=== PATIENT | female | born 1960 | race Caucasian/White ===

== ENCOUNTER 2021-02-12 01:00 | Day surgery (SDC) | payer OTHER, SELFPAY ==
[2021-02-06 13:23] VITALS: BMI 24.8
[2021-02-12] VITALS (16 sets, daily range): BP systolic 124–154; BP diastolic 66–83; PULSE 83–103; RESP 12–18; TEMP 36.3–36.6; O2SAT 93–99; BMI 24.7
[2021-02-12 13:02] LABS: Urine Cotinine NEGATIVE
--- NOTE | 2021-02-12 13:31 | WPDHPUPDATE1 ---
History and Physical Update Update Date/Time: 02/12/21 13:31 History and Physical has been reviewed, including an updated exam of the patient. There are NO changes in the patient's condition. Risks, benefits, and alternatives have been discussed and questions answered. Patient agrees to proceed with procedure.
--- NOTE | 2021-02-12 13:36 | SUR.PREOP ---
RN IN ROOM WHILE DR LAKE MARKED PT
--- NOTE | 2021-02-12 13:36 | SUR.PREOP ---
500CC IVF BOLUS GIVEN PER ORDER
--- NOTE | 2021-02-12 13:40 | WPDANESEPPF ---
Anes - Initial Pre Proc Eval Procedure: Operation Date: 02/12/21 14:00 Proposed Procedures p Right Breast Implant Exchange, Right Breast Capsulotomy - Jamal Hess MD s Right Breast Fat Grafting - Jamal Hess MD Date/Time: 02/12/21 13:40 Surgeon: Jamal Hess MD Pre Op Diagnosis: hx of breast CA Patient Data Age: 60 Gender: F Height: 1.52 m Weight: 57.6 kg Last Vital Signs Temp 36.3 C L 02/12/21 12:38 Pulse 84 02/12/21 12:38 Resp 18 02/12/21 12:38 BP 134/73 02/12/21 12:38 Pulse Ox 99 02/12/21 12:38 Allergies Allergy/AdvReac Type Severity Reaction Status Date / Time Sulfa (Sulfonamide Allergy Mild Nausea Verified 02/12/21 12:06 Antibiotics) Home Medications Medication Instructions Recorded Confirmed Type alprazolam [Xanax] 0.25 mg PO HS PRN 06/13/19 02/06/21 History ondansetron HCl 4 mg tablet 4 mg PO Q6H PRN #30 tablet 01/28/21 02/06/21 Rx hydrocodone 5 mg-acetaminophen 325 1 tablet PO Q6H PRN #15 tablet 01/29/21 02/06/21 Rx mg tablet albuterol sulfate 2 puff INHALATION PRN 02/06/21 02/12/21 History amlodipine 5 mg PO DAILY 02/06/21 02/12/21 History clonazepam 0.5 mg PO PRN 02/06/21 02/06/21 History fluticasone furoate-vilanterol 1 inh INHALATION DAILY 02/06/21 02/06/21 History [Breo Ellipta] tizanidine 2 mg PO PRN 02/06/21 02/06/21 History Laboratory Tests 02/12/21 12:24 Cotinine Negative Patient hx anesthesia problems: none Family hx anesthesia problems: none PMFSH Past Medical History Medical History Anxiety Breast cancer Depression Hypertension Surgical History Surgical History History of breast reconstruction Family History Family History Mother Family history of malignant neoplasm Heart disease Cerebrovascular accident Father Heart disease Social History Social History Smoking status: Never smoker Living arrangements: alone Spiritual care concerns: No Anes - Eval Final PreProcedure Day of Procedure 02/12/21 13:40 Patient weight: overweight Heart: regular rate and rhythm Lungs: clear to auscultation and normal air movement Airway: Mallampati scale class II Neurological: alert and oriented Last oral intake: >/= 8 hours ASA classification: II Emergent: no Anesthetic plan: proceed Anesthesia type and monitoring: general LMA Informed Consent: The patient's anesthetic plan and its attendant risks and benefits were discussed with the patient/family/POA. Questions were solicited and answers provided to the satisfaction of the patient/family/POA.
--- NOTE | 2021-02-12 13:48 | P.OP_ITS ---
Procedure Note - Detailed Date of Procedure 02/12/21 Pre-op Diagnosis hx of breast CA Acquired breast deformity Post-op Diagnosis same Procedure Performed 1. Right breast fat grafting 93 cc 2. Right breast implant removal (intact) 3. Right breast implant placement 4. Right breast capsulotomy Surgeon Jamal Hess MD Findings Right breast implant Mary Yates 545cc REF# [id number] Description of Procedure Preoperatively the risks, benefits, alternatives were discussed in extensive detail. I wanted her to be very realistic about the risks involved as well as expectations. She has selected her goal for increase in volume.Made sure answered all of her questions to her satisfaction. Consent obtained. She was marked in the preoperative holding area. She was taken to the operating room placed supine on the operating room table. Anesthesia provided by [facility] and prepped and draped in a standard sterile fashion. I proceeded with a thorough abdominal examination. Verified no hernias or palpable masses. Stab incisions were made and I tumesced with a tumescent solution. This was to a gravity separation device. Allowed adequate time for gravity separation. Stab incisions were made at the breast. I injected using 3 mm cannula adipose t issue in multiple planes and passes based on preoperative planning and tissue compliance. Fifteen blade used to open the previous incision. Dissection was continued down to the implant was identified and this was removed. I performed capsulotomy. I then used sizers in order to pick her final size based on her direction preoperatively. Copiously irrigated with saline solution on TUR tubing. This was followed by triple antibiotic Betadine containing solution. The implant was introduced into the pocket using a Brunson funnel. I closed with 2-0 Vicryl followed by 3-0 Monocryl in a running subcuticular 4-0 Monocryl and tissue glue. Dressings were placed. She was awoke and taken to the PACU without difficulty. All instrument sponge counts were correct at the end of the case. Estimated Blood Loss 10 Drains No Packing No Pathology none sent Complications No immediate complications Condition stable Disposition PACU
[2021-02-12] MEDS: LACTATED RINGERS 1,000 ML 30 ML IV CONT ×2 (14:04→16:17)
[2021-02-12] MEDS: SCOPOLAMINE 1.5 MG PATCH TRANSDERM (14:12)
[2021-02-12] MEDS: ceFAZolin 2 GM/D5W 50 ML 2 GM/50 ML BAG IVPB (14:40)
[2021-02-12] MEDS: LACTATED RINGERS IRRIG 1,000 ML, LIDOCAINE HCL 1% LOCAL INJ 50 ML, EPINEPHrine HCL INJ ... INFILTRATE (15:42)
[2021-02-12] MEDS: BUPIVACAINE HCL 0.25% PF 30 ML VIAL INFILTRATE (15:51)
[2021-02-12] MEDS: ONDANSETRON INJ 4 MG/2 ML VIAL IV PUSH (16:37)
[2021-02-12] MEDS: diphenhydrAMINE HCl INJ 50 MG/ML VIAL 25 MG IV PUSH ×2 (16:52→17:11)
[2021-02-12] MEDS: FAMOTIDINE 20 MG/2 ML VIAL IV PUSH (16:52)
[2021-02-12] MEDS: HALOPERIDOL LACTATE 5 MG/ML VIAL 1 MG IV PUSH (17:27)
--- NOTE | 2021-02-12 19:36 | SUR.PHASEII ---
PATIENT ASKED NOT TO TRANSFER TO [facility] D/T NAUSEA UNTIL 1900.
== END 2021-02-12 19:15 | disposition home or self-care (01) ==
PROVIDERS: Visit Provider Surgery Plastic and Reconstructive Surgery
PROC: (CPT 19342; principal; 2021-02-12 14:00)
PROC: (CPT 15769; 2021-02-12 14:00)
DX: Z42.1 Encounter for breast reconstruction following mastectomy (principal); N64.89 Other specified disorders of breast; F41.9 Anxiety disorder, unspecified; Z85.3 Personal history of malignant neoplasm of breast; F32.9 Major depressive disorder, single episode, unspecified; Z90.11 Acquired absence of right breast and nipple; I10 Essential (primary) hypertension; Z92.3 Personal history of irradiation
CPT/HCPCS: 19380; 80307; A9270; J0171; J0690; J1200; J1580; J1630; J2250; J2270; J2405; J2704; J7120